=== PATIENT | female | born 1995 | race Two or more races ===

== ENCOUNTER → 2018-05-01 | Outpatient (CLI) | payer OTHER | END | disposition home or self-care (01) | LOC: HKI 10:26 | DX: M25.562 Pain in left knee (principal); M25.561 Pain in right knee | CPT/HCPCS: 73564; 73564-50 ==

== ENCOUNTER 2018-10-04 15:31 | Emergency (ER) | payer SELFPAY, OTHER | END 2018-10-04 18:01 | disposition home or self-care (01) | LOC: FTE 15:31 | DX: R07.89 Other chest pain (principal) | CPT/HCPCS: 93005; 99283-25 ==